=== PATIENT | male | born 1985 | race Two or more races ===

== ENCOUNTER 2018-08-30 11:26 | Outpatient (CLI) | payer BC ==
[~2018-08-30] VITALS: Ht 177.8 cm; Wt 83.9 kg
== END 2018-08-30 11:40 | disposition home or self-care (01) ==
LOC: OFIC 805 11:26
DX: H60.8X1 Other otitis externa, right ear (principal); H61.21 Impacted cerumen, right ear; H91.8X1 Other specified hearing loss, right ear

== ENCOUNTER 2018-08-30 13:30 | Outpatient (CLI) | payer BC | END 2018-08-30 15:00 | disposition home or self-care (01) | LOC: LAB 13:30 | DX: H61.91 Disorder of right external ear, unspecified (principal) ==

== ENCOUNTER 2018-09-03 15:27 | Outpatient (CLI) | payer BC ==
[~2018-09-03] VITALS: Ht 152.4 cm; Wt 83.9 kg
== END 2018-09-03 15:40 | disposition home or self-care (01) ==
LOC: OFIC 805 15:27
DX: H60.8X1 Other otitis externa, right ear (principal); H61.21 Impacted cerumen, right ear; H91.8X1 Other specified hearing loss, right ear

== ENCOUNTER 2018-09-17 15:39 | Outpatient (CLI) | payer BC ==
[~2018-09-17] VITALS: Ht 152.4 cm; Wt 83.9 kg
== END 2018-09-17 16:00 | disposition home or self-care (01) ==
LOC: OFIC 805 15:39
DX: H60.8X1 Other otitis externa, right ear (principal); H91.8X1 Other specified hearing loss, right ear

== ENCOUNTER → 2021-04-05 10:00 | Outpatient (CLI) | payer OTHER | END | disposition home or self-care (01) | LOC: PPH VACUNA 10:00 | PROVIDERS: ATTEND Emergency Medicine Pediatric Emergency Medicine | DX: Z23 Encounter for immunization (principal) ==

== ENCOUNTER 2025-01-27 07:40 | Emergency (ER) | payer OTHER ==
[~2025-01-27] VITALS: Ht 170.2 cm; Wt 86.2 kg
[2025-01-27] MEDS ORDERED: KETOROLAC TROMETHAMINE 60 MG VIAL IM ONE (09:15)
[2025-01-27] MEDS ORDERED: ACETAMINOPHEN 500 MG GEL..CAP PO ONE (09:15)
[2025-01-27] MEDS ORDERED: ORPHENADRINE CITRATE 30 MG/ML AMPUL IM ONE (09:15)
[2025-01-27] MEDS ORDERED: DEXAMETHASONE SODIUM PHOSPHATE 4 MG/ML VIAL IM ONE (09:15)
[2025-01-27] MEDS ORDERED: IBU600 MG PO (13:22)
[2025-01-27] MEDS ORDERED: PEPCID AC20 MG PO (13:22)
[2025-01-27] MEDS ORDERED: NORFLEX100MG PO (13:22)
== END 2025-01-27 15:22 | disposition home or self-care (01) ==
LOC: ER 07:41
DX: S82.61XA Displaced fracture of lateral malleolus of right fibula, initial encounter for closed fracture (principal); W19.XXXA Unspecified fall, initial encounter; Y93.89 Activity, other specified; Y92.89 Other specified places as the place of occurrence of the external cause; Y99.9 Unspecified external cause status